=== PATIENT | male | born 1955 | race Caucasian/White ===

== ENCOUNTER → 2020-07-13 | Outpatient (CLI) | payer MEDICARE ==
--- NOTE | 2020-07-14 11:39 | XR ---
EXAMINATION TYPE: XR humerus LT DATE OF EXAM: 07/13/2020 CLINICAL HISTORY: Pain after fall injury 3 weeks ago. TECHNIQUE: Two views of the left humerus are obtained. COMPARISON: None. FINDINGS: Osseous structures are demineralized which is noted to lower radiographic sensitivity. In a ddition there is overlying artifact from clothing material. There is deformity to the humeral head saini spected and glenohumeral joint arthropathy. Some overlying linear lucency without cortical step off s uspected artifact. There is however more suspicious focal sclerosis of the intramedullary portion of the proximal to mid diaphysis left humerus. Cannot exclude bone lesion at this level. No acute or sub acute displaced fracture clearly seen. IMPRESSION: As above. Follow-up advised. A Yellow level critical message alert has been initiated for Yann Quintero DO via the [employer] Critical Results System on 07/14/2020 11:36 AM. This message alert has been sent to Yann kwong DO via the preferences provided by the clinician for the receipt of Radiology Critical Findings . Message ID [id number].
--- NOTE | 2020-07-14 11:40 | XR ---
EXAMINATION TYPE: XR hand limited LT DATE OF EXAM: 07/13/2020 CLINICAL HISTORY: Fall injury 3 weeks ago with pain worse over third finger TECHNIQUE: Frontal and lateral images of the left hand are obtained. COMPARISON: None. FINDINGS: There is no acute fracture/dislocation evident in the left hand with particular attention to the third finger. Mild to moderate narrowing throughout the PIP and DIP joints of the fingers. No significant spurring. Relative sparing of MCP joints. The overlying soft tissue appears unremarkable . IMPRESSION: There is no acute fracture or dislocation in the left hand.
--- NOTE | 2020-07-14 11:42 | XR ---
EXAMINATION TYPE: XR cervical spine comp DATE OF EXAM: 07/13/2020 TECHNIQUE: Frontal, lateral, oblique, swimmer's, and open mouth view of the cervical spine are obtain ed. HISTORY: M5030,[id number] COMPARISON: None FINDINGS: There is loss of normal cervical curvature. There is anterior fusion plate at C6-C7 level with some ossific fusion. There is mild to moderate disc space narrowing with moderate to severe ante rior spurring C3-C4 through the C5-C6 levels. The pre-vertebral soft tissue appears within normal gilman its. The C1-C2 articulation is within normal limits on the open mouth view. Suboptimal evaluation of C7-T1 level despite attempted swimmer's view. Slight scoliotic curvature positioning on frontal view . Oblique images show some multilevel uncovertebral facet spurring contributing to multilevel bilater al neural foraminal narrowing. Overlying soft tissue is unremarkable. IMPRESSION: As above.
--- NOTE | 2020-07-14 11:44 | XR ---
EXAMINATION TYPE: XR lumbosacral spine min 4V DATE OF EXAM: 07/13/2020 CLINICAL HISTORY: M5030,[id number] .pain. TECHNIQUE: Frontal, lateral, and oblique images of the lumbar spine are obtained. COMPARISON: None FINDINGS: There are 5 lumbar type vertebral bodies identified. There is grade 1 anterolisthesis of L 4 on L5. There is grade 1 retrolisthesis of L3 on L4. Mild disc space narrowing posterior L3-L4 level . Mild disc space narrowing L4-L5 level. Mild multilevel anterior and lateral spurring in the mid to lower lumbar spine. Oblique images appear within normal limits. Bilateral pars defect L5 level not cl early identified. Facet arthropathy lower lumbar levels. Mild vascular calcification of the overlying abdominal aorta. IMPRESSION: As above.
== END | disposition home or self-care (01) ==
LOC: RADXRYALE 15:47
PROVIDERS: ATTEND Family Medicine
DX: M50.30 Other cervical disc degeneration, unspecified cervical region (principal); M51.36 Other intervertebral disc degeneration, lumbar region; M79.622 Pain in left upper arm; M79.642 Pain in left hand; W01.10XA Fall on same level from slipping, tripping and stumbling with subsequent striking against unspecified object, initial encounter
CPT/HCPCS: 72050; 72110

== ENCOUNTER → 2020-10-01 | Outpatient (CLI) | payer MEDICARE ==
[2020-10-01 09:18] VITALS: BP 171/77; PULSE 78; RESP 16; TEMP 98.2
--- NOTE | 2020-10-01 12:08 | P.PAINCN ---
History of Present Illness - Reason for Consult Consult date: 10/01/20 - History of Present Illness This is 65 years old male with a chronic history of severe low back pain, after several years ago patient the pain is constant and increases with any activity interference with the quality of life , she had back surgery in the past and he continued to have severe low back pain, patient feels some weakness in his lower extremity , he ambulates using cane, the intensity of the pain 6/10 increased to 10 over 10 with any activity, denies any change in the bowel movement or urination he denies any fever or night sweats Past Medical History Past Medical History: Diabetes Mellitus, Eye Disorder, Hyperlipidemia, Hypertension History of Any Multi-Drug Resistant Organisms: None Reported Past Surgical History: Back Surgery Additional Past Surgical History / Comment(s): BACK SX X 2. COLONOSCOPY. BLE VEIN STRIPPING. RT RETINAL REPAIR Past Anesthesia/Blood Transfusion Reactions: No Reported Reaction Past Psychological History: Anxiety Smoking Status: Never smoker Past Alcohol Use History: None Reported Past Drug Use History: None Reported - Past Family History Mother Family Medical History: Cancer Medications and Allergies Home Medications Medication Instructions Recorded Confirmed Type Apixaban [Eliquis] 5 mg PO BID 10/01/20 10/01/20 History Atorvastatin [Lipitor] 40 mg PO DAILY 10/01/20 10/01/20 History Carvedilol [Coreg] 6.25 mg PO BID 10/01/20 10/01/20 History Cetirizine HCl 10 mg PO DAILY 10/01/20 10/01/20 History Ferrous Sulfate [Iron] 325 mg PO DAILY 10/01/20 10/01/20 History Finasteride [Proscar] 5 mg PO DAILY 10/01/20 10/01/20 History Gabapentin 600 mg PO DAILY 10/01/20 10/01/20 History Magnesium 250 mg PO DAILY 10/01/20 10/01/20 History Spironolactone 25 mg PO DAILY 10/01/20 10/01/20 History Tamsulosin [Flomax] 0.4 mg PO DAILY 10/01/20 10/01/20 History metOLazone [Zaroxolyn] 5 mg PO DAILY 10/01/20 10/01/20 History Allergies Allergy/AdvReac Type Severity Reaction Status Date / Time No Known Allergies Allergy Verified 09/26/20 12:12 Physical Exam Vitals: Vital Signs Temp Pulse Resp BP Pulse Ox 10/01/20 09:13 98.2 F 78 16 171/77 98 Physical Examinations : -Constitutiona : Cooperative , not in acute distress . -HEENT : nech : supple , no Lymphadenopathy , normal thyroid size . : eyes : no ptosis , no icterus, no photophobia . - neurologic : Cranial nerve II to XII intact , no focal neurological deffecit . -psychatric : alert , oriented X 3 , appropriate affect , in tact judgment and insight . -Lymphatic : no Lymphadenopathy . - musculoskeltal : Cervical Spine motor stregnth in the deltoid and biceps, normal right side , normal Left side motor stregnth biceps and the wrist extensors normal right side ,normal left side . motor stregnth in the triceps muscle . normal Right side , normal Left side deep tendon reflexes normal at the biceps , normal at Brachioradialis , normal at triceps. cervical facet loading test: Positive Bilaterally Spurling test= positive Right , positive left. Neck distraction test= positive Right , positive left. Amish sign= positive right, positive left . Lumber spine moter stegnth lower extremities ,thigh and legs 4/5 Right side , 4/5 Left side deep tendon reflexes : normal Knee Jerk , normal ankle Jerk lumber facet Loading Test =positive Right , positive Left Range of motion of the lumbar spine Flexion 30 degrees, extension 10 degrees strait leg raising test = positive at 30 degree Fabere test= positive Right , and positive LT . Sever tenderness over the Sacroiliac joint on the Right , and Left sides Gaenslen test= positive right ,and positive left . Seated flexion test= positive right ,and positive Left . Distraction test= positive bilaterally Results Comments: MRI of the lumbar spine= diffuse lumbar bulging disc disease, central canal stenosis, severe bilateral foraminal narrowing, lumbar spondylosis with lumbar facet arthropathy. MRI of the cervical spine= C2 3 facet narrowing, C3 4 facet joint narrowing, and C4 5 facet joint arthropathy and central canal narrowing Assessment and Plan Plan: Assessment and plan=1-lumbar degenerative disc disease. 2-lumbar spondylosis with lumbar facet arthropathy. 3-Lumbar spinal stenosis. 4-poorly controlled diabetes. 5-chronic use of ELIQUIS Patient will be good candidate to have diagnostic medial branch block lumbar area L3,L4, L5 bilaterally , possible RFA Time with Patient: Greater than 30 PQRS Measure Charge Sheet Measure #130: Documentation of Current Meds in Medical Chart: Patient's medications documented in chart Measure #226: Tobacco Use: Screen & Cessation Intervention: Pt not a tobacco user Measure #111: Pneumonia Vaccination: Pneumococcal vaccine NOT administered or previously given Measure #47: Advance Care Plan: Advance care planning discussed & documented, pt chose/unable to give Measure #412: Opioid Treatment Agreement: No documentation of signed opioid treatment agreement Measure #408: Opioid Therapy Follow-up Evaluation: Patient had NO f/u eval minimum every 3 months during opioid therapy Measure #317: Preventitive Care & Scrn High Bld Press & F/U: Pre-hypertensive or hypertensive BP documented, pt will f/u with PCP Measure #128: Body Mass Index (BMI) Screening & Follow-up: BMI documented ABOVE normal parameters - f/u documented Measure #131: Pain Assessment & Follow-up: Pain positive & plan documented, Follow-up scheduled Measure #431: Unhealthy Alcohol Use Preventative Care & Scrn: Patient not identified as an unhealthy alcohol user PQRS Narrative: Blood Pressure 171/77 Pain Intensity [Lower Back] 0 Scale Used Numeric (1 - 10) Hx Alcohol Use (MH) No Home Medications: Ambulatory Orders Apixaban [Eliquis] 5 mg PO BID 10/01/20 Atorvastatin [Lipitor] 40 mg PO DAILY 10/01/20 Carvedilol [Coreg] 6.25 mg PO BID 10/01/20 Cetirizine HCl 10 mg PO DAILY 10/01/20 Ferrous Sulfate [Iron] 325 mg PO DAILY 10/01/20 Finasteride [Proscar] 5 mg PO DAILY 10/01/20 Gabapentin 600 mg PO DAILY 10/01/20 Magnesium 250 mg PO DAILY 10/01/20 Spironolactone 25 mg PO DAILY 10/01/20 Tamsulosin [Flomax] 0.4 mg PO DAILY 10/01/20 metOLazone [Zaroxolyn] 5 mg PO DAILY 10/01/20
== END ==
LOC: PNWHC3 08:46
PROVIDERS: ATTEND Specialist
DX: M51.36 Other intervertebral disc degeneration, lumbar region (principal); M47.816 Spondylosis without myelopathy or radiculopathy, lumbar region; M48.061 Spinal stenosis, lumbar region without neurogenic claudication; E11.9 Type 2 diabetes mellitus without complications; I10 Essential (primary) hypertension; E78.5 Hyperlipidemia, unspecified; Z79.01 Long term (current) use of anticoagulants; Z79.899 Other long term (current) drug therapy
CPT/HCPCS: 99211

== ENCOUNTER 2020-11-13 07:33 | Day surgery (SDC) | payer MEDICARE ==
[2020-11-12 12:28] VITALS: BMI 45.8
[~2020-11-13 07:33] MED LIST: LACTATED RINGERS 1,000 ML IV SCH
[2020-11-13 07:45] LABS: Glucose,Whole Blood 64 mg/dL (75-99)
[2020-11-13] MEDS ORDERED: DEXTROSE 50% SYRINGE 50 ML IVP ONE (07:54)
[2020-11-13 07:56] VITALS: RESP 16; TEMP 98.1
[2020-11-13 08:02] LABS: Glucose,Whole Blood 97 mg/dL (75-99)
[2020-11-13] MEDS ORDERED: MIDAZOLAM 2 MG/2 ML VIAL ONE (08:25)
[2020-11-13] MEDS ORDERED: fentaNYL (PF) 50 MCG/ML 2 ML AMP ONE (08:25)
[2020-11-13] MEDS ORDERED: methylPREDNISolone ACETATE 40 MG/ML 1 ML VIAL ONE (08:25)
[2020-11-13] MEDS ORDERED: ROPIVACAINE 5MG/ML 20ML VIAL ONE (08:25)
--- NOTE | 2020-11-13 08:47 | P.PCN ---
Date of Procedure: 11/13/20 Procedure(s) Performed: PREOPERATIVE DIAGNOSIS : 1- Lumbar spondylosis with Facet Arthropathy without myelopathy . 2- Lumber degenerative disc disease POSTOPERATIVE DIAGNOSIS: 1- Lumbar spondylosis with Facet Arthropathy without myelopathy . 2- Lumber degenerative disc disease PROCEDURE: Diagnostic bilateral L3 , L4 , and L5 medial branch block under fluoroscopy guidance(fluoroscopy images available in the radiology Department ) ( To target the facet joint between bilateral L4-5 , and L5-S1 ) ANESTHESIA:, moderate sedation with intravenous Versed 1 mg and Fentanyl 50 mcg. EBL: Minimal COMPLICATION: None PROCEDURE INDICATION: Chronic low back pain secondary to Facet arthropathy unresponsive to conservative treatment. PROCEDURE DESCRIPTION: the patient was seen and identified in the preop holding area , risks and benefits and possible complications of the procedure and alternative were discussed with the patient, and the patient agreed to proceed with the procedure and signed the consent and vital signs monitored during the procedure and fluoroscopy was used to maximize the benefit and accuracy of the needle placement, and sedation was given to decrease patient anxiety, patient was taken to the procedure room and placed in prone position vital signs monitored in the back prepped with chlorhexidine X3 then under strict sterile technique using a right oblique fluoroscopy ,the junction of the transverse process and the superior articulating process of the right L3 , L4 , and L5 vertebra which corresponding to the fluoroscopy image of the eye of the Esequiel dog on the block side for the medial branches and subsequently , after local infiltration of skin and subcu tissuies with Ropivacaine 0.5 % , one mL at each level ,then 22-gauge 5 inches long Quincke-type needles , 3 needle was used , each one of them placed at the junction of the base of the transverse process and the superior articular process at the appropriate level, and the needle was advanced until the periosteum contacted, needle placement confirmed with AP oblique and lateral view and after appropriate needle placement confirmed, and after negative aspiration for heme and CSF and there was no paresthesia 1-1/2 mL of Ropivacaine 0.5% mixed with 20 mg Depo-Medrol , then half mL injected at each level after negative aspiration the needle subsequently removed and the same procedure repeated for the left side at left side at L3 , L4 and L5 levels. At the end of the procedure and the needles removed and a bandage applied after the skin was cleaned the cleaning solution patient taken to recovery room in stable condition and monitors in the recovery room for 20-30 minutes and discharged home in stable condition after discharge criteria met and patient will follow up with the pain clinic in 2-4 weeks
[2020-11-13 08:53] VITALS: PULSE 72
[2020-11-13 09:02] LABS: Glucose,Whole Blood 84 mg/dL (75-99)
[2020-11-13 09:08] VITALS: BP 125/60
[2020-11-13] MEDS ORDERED: IV FLUID CONTINUATION 1,000 ML IV ONE (09:08)
--- NOTE | 2020-11-13 13:07 | FL ---
EXAMINATION TYPE: FL guided pain mgmt statistic DATE OF EXAM: 11/13/2020 HISTORY: Pain, Naren Lumbar Facet 19sec fluoro time 4 images to PACS
== END 2020-11-13 09:24 | disposition home or self-care (01) ==
LOC: ORPAIN 07:33
PROVIDERS: ATTEND Specialist
DX: G89.29 Other chronic pain (principal); M47.816 Spondylosis without myelopathy or radiculopathy, lumbar region; M51.36 Other intervertebral disc degeneration, lumbar region; M54.5 Low back pain
CPT/HCPCS: 64493; 64494; J2250; J1030; J3010; J2795; 99152

== ENCOUNTER → 2020-11-28 | Outpatient (CLI) | payer MEDICARE ==
[2020-11-28 12:56] VITALS: BP 147/69; PULSE 97; RESP 18; TEMP 97.8
--- NOTE | 2020-11-28 13:22 | P.PN ---
Subjective Progress Note Date: 11/28/20 This is 65 years old male with a chronic history of severe low back pain, for several years ago patient the pain is constant and increases with any activity interference with the quality of life , patient feels some weakness in his lower extremity , he ambulates using cane, the intensity of the pain 6/10 increased to 10 over 10 with any activity, denies any change in the bowel movement or urination he denies any fever or night sweats, recently we have done diagnostic medial branch block lumbar area, patient reported that he did benefited only 40% after the block Physical Examinations : -Constitutiona : Cooperative , not in acute distress . -HEENT : nech : supple , no Lymphadenopathy , normal thyroid size . : eyes : no ptosis , no icterus, no photophobia . - neurologic : Cranial nerve II to XII intact , no focal neurological deffecit . -psychatric : alert , oriented X 3 , appropriate affect , intact judgment and insight . -Lymphatic : no Lymphadenopathy . - musculoskeltal : Cervical Spine motor stregnth in the deltoid and biceps, normal right side , normal Left side motor stregnth biceps and the wrist extensors normal right side ,normal left side . motor stregnth in the triceps muscle . normal Right side , normal Left side deep tendon reflexes normal at the biceps , normal at Brachioradialis , normal at triceps. cervical facet loading test: Positive Bilaterally Spurling test= positive Right , positive left. Neck distraction test= positive Right , positive left. Amish sign= positive right, positive left . Lumber spine moter stegnth lower extremities ,thigh and legs 4/5 Right side , 4/5 Left side deep tendon reflexes : normal Knee Jerk , normal ankle Jerk lumber facet Loading Test =positive Right , positive Left Range of motion of the lumbar spine Flexion 30 degrees, extension 10 degrees strait leg raising test = positive at 30 degree Fabere test= positive Right , and positive LT . Sever tenderness over the Sacroiliac joint on the Right , and Left sides Gaenslen test= positive right ,and positive left . Seated flexion test= positive right ,and positive Left . Distraction test= positive bilaterally Results MRI of the lumbar spine= diffuse lumbar bulging disc disease, central canal stenosis, severe bilateral foraminal narrowing, lumbar spondylosis with lumbar facet arthropathy. MRI of the cervical spine= C2 3 facet narrowing, C3 4 facet joint narrowing, and C4 5 facet joint arthropathy and central canal narrowing Assessment and plan=1-lumbar degenerative disc disease. 2-lumbar spondylosis with lumbar facet arthropathy. 3-Lumbar spinal stenosis. 4-morbid obesity ,poorly controlled diabetes. 5-chronic use of ELIQUIS Patiens had no benefit from diagnostic medial branch block lumbar area L3,L4, L5 he could benefit from lumbar epidural steroid injection at L4 5 , tattoo hold liquids for 3 days before the procedure The patient referred to have consultation with bariatric surgery PQRS Measure Charge Sheet Measure #130: Documentation of Current Meds in Medical Chart: Patient's medications documented in chart Measure #226: Tobacco Use: Screen & Cessation Intervention: Pt not a tobacco user Measure #111: Pneumonia Vaccination: Pneumococcal vaccine NOT administered or previously given Measure #47: Advance Care Plan: Advance care planning discussed & documented, pt chose/unable to give Measure #412: Opioid Treatment Agreement: No documentation of signed opioid treatment agreement Measure #408: Opioid Therapy Follow-up Evaluation: Patient had NO f/u eval minimum every 3 months during opioid therapy Measure #317: Preventitive Care & Scrn High Bld Press & F/U: Pre-hypertensive or hypertensive BP documented, pt will f/u with PCP Measure #128: Body Mass Index (BMI) Screening & Follow-up: BMI documented ABOVE normal parameters - f/u documented Measure #131: Pain Assessment & Follow-up: Pain positive & plan documented, Fol low-up scheduled Measure #431: Unhealthy Alcohol Use Preventative Care & Scrn: Patient not identified as an unhealthy alcohol user PQRS Narrative: Objective - Vital Signs Vital signs: Vital Signs Temp 97.8 F 11/28/20 12:54 Pulse 97 11/28/20 12:54 Resp 18 11/28/20 12:54 BP 147/69 11/28/20 12:54 Pulse Ox 95 11/28/20 12:54 Intake & Output 11/27/20 11/28/20 11/28/20 18:59 06:59 18:59 Weight 149.232 kg
== END ==
LOC: PNWHC3 12:41
PROVIDERS: ATTEND Specialist
DX: M51.36 Other intervertebral disc degeneration, lumbar region (principal); M47.816 Spondylosis without myelopathy or radiculopathy, lumbar region; M48.061 Spinal stenosis, lumbar region without neurogenic claudication; E66.01 Morbid (severe) obesity due to excess calories; E11.9 Type 2 diabetes mellitus without complications; Z79.01 Long term (current) use of anticoagulants; Z68.41 Body mass index [BMI] 40.0-44.9, adult
CPT/HCPCS: 99211

== ENCOUNTER 2021-02-26 12:18 | Day surgery (SDC) | payer MEDICARE ==
[2021-02-25 11:39] VITALS: BMI 45.4
[2021-02-26] MEDS ORDERED: LACTATED RINGERS 1,000 ML IV SCH ×2 (13:13→14:00)
[2021-02-26 13:28] VITALS: RESP 18; TEMP 97.9
[2021-02-26] MEDS ORDERED: LIDOCAINE 1% (10MG/ML) FOR IV START INTRADERMA ONE (13:29)
[2021-02-26] MEDS ORDERED: MIDAZOLAM 2 MG/2 ML VIAL ONE (13:33)
[2021-02-26] MEDS ORDERED: methylPREDNISolone ACETATE 40 MG/ML 1 ML VIAL ONE (13:33)
[2021-02-26] MEDS ORDERED: fentaNYL (PF) 50 MCG/ML 2 ML AMP ONE (13:33)
[2021-02-26] MEDS ORDERED: IOPAMIDOL M200 10 ML VIAL ONE (13:33)
[2021-02-26 13:34] LABS: Glucose,Whole Blood 109 mg/dL (75-99)
--- NOTE | 2021-02-26 13:51 | P.PCN ---
Date of Procedure: 02/26/21 Description of Procedure: Procedure: 1. L4-L5 is Epidural steroid injection under fluoroscopic guidance #1, 2. Lumbar epidurogram PREOPERATIVE DIAGNOSIS: Lumbar degenerative disc disease, and Lumbar radiculopathy. POSTOPERATIVE DIAGNOSIS: Lumbar degenerative disc disease, and Lumbar radiculopathy. SURGEON: Dharmesh Johansen ANESTHESIA: Local with 1% lidocaine, and IV sedation as per anesthesia record EBL: None. Specimen removed: None Fluoroscopic image: saved to electronic medical records PROCEDURE INDICATION: The patient had history of Lumbar degenerative disc disease and Lumbar radiculopathy. Failed to conservative therapy. Presented for epidural steroid injection. PROCEDURE DESCRIPTION: The patient was seen and identified in the preoperative area. Risks, benefits, complications, and alternatives were discussed with the patient. The patient agreed to proceed with the procedure and signed the consent. IV was started, and vital signs were stable. Patient was taken to the procedure area, and time out was completed. The patient was placed in the prone position on procedure table and a pillow was placed under the abdomen to reduce lumbar lordosis. The lumbosacral area was prepped and draped in the usual sterile fashion. Critical pause was taken. Vital signs were closely monitored during the procedure. Using anterior-posterior fluoroscopy, the L4-L5 interlaminar space was identified, and skin and deeper tissues were localized with 1% lidocaine. Using anterior-posterior fluoroscopy, lateral fluoroscopy, and [id number] technique, a 18 gauge 6 inch Tuohy epidural needle entered the epidural space. After negative aspiration of CSF and blood with no paresthesias, 1 ml of [id number] contrast dye was injected and an excellent epidurogram was seen. Again after negative aspiration of CSF and blood with no paresthesias, 10 mL of block solution was injected into the epidural space. Block solution contained 40 mg of Depo-Medrol, and 9 mL of preservative-free normal saline. Needle was withdrawn intact, skin was cleansed, and bandages were applied. COMPLICATIONS: None. DISPOSITION / PLANS: The patient was placed in a supine position and transferred to the recovery area in a stable condition for observation. Patient was discharged from the recovery room after meeting discharge criteria. Home discharge instructions given to the patient by the staff. The patient was reexamined prior to discharge. The patient will schedule a follow up in the clinic in 4 weeks.
[2021-02-26] MEDS ORDERED: IV FLUID CONTINUATION 1,000 ML IV ONE (13:56)
[2021-02-26 14:06] LABS: Glucose,Whole Blood 98 mg/dL (75-99)
--- NOTE | 2021-02-26 14:15 | FL ---
EXAMINATION TYPE: FL guided pain mgmt statistic DATE OF EXAM: 02/26/2021 CLINICAL HISTORY: Low back pain. TECHNIQUE: Fluoroscopy. COMPARISON: None. FINDINGS: Fluoroscopic guidance was provided during pain relief procedure performed by Dr. Johansen. A total of 4 seconds of fluoroscopic time was utilized during the procedure and two spot images are acquired. Images acquired shows needle localization at the L4-L5 level. IMPRESSION: As Above.
[2021-02-26 14:19] VITALS: BP 148/77; PULSE 72
== END 2021-02-26 14:30 | disposition home or self-care (01) ==
LOC: ORPAIN 12:18
DX: M51.16 Intervertebral disc disorders with radiculopathy, lumbar region (principal)
CPT/HCPCS: 62323; J2250; J1030; J3010; Q9966; 99152